=== PATIENT | male | born 1935 | race Caucasian/White ===

== ENCOUNTER 2017-12-13 05:47 | Emergency (ER) | payer MEDICARE, OTHER ==
[~2017-12-13] VITALS: Ht 172.7 cm; Wt 81.6 kg
[~2017-12-13 05:47] MED LIST: ESOM10SU; Losartan Potassium PO; MULTI VITAMINS
--- NOTE | 2017-12-13 05:51 | NUR ---
BIB RA C/C ABDOMINAL PAIN. SECONDARY TO NAUSEA. "IT FEELS LIKE A GAS PAIN." PT AA/OX4. SKIN'S PINK, WARM, DRY. DENIES CHEST PAIN. NO S/S SOB. PT HYPERTENSIVE 171/86, SINUS TACH 108. ALL OTHER VSS. AWAITING MD ORDERS, EVAL.
[2017-12-13] MEDS ORDERED: ONDANSETRON HCL/PF 4 MG/2 ML VIAL ONE ×3 (06:15→06:34)
[2017-12-13] MEDS ORDERED: MORPHINE SULFATE INJ 4 MG/ML DISP.SYRIN ONE ×2 (06:16→06:20)
[2017-12-13] MEDS: ONDANSETRON HCL/PF 4 MG/2 ML VIAL IVP ONE ×2 (06:24→06:30)
[2017-12-13] MEDS ORDERED: IV NS 0.9% 500 ML BAG IV ONE (06:30)
[2017-12-13] MEDS ORDERED: MORPHINE SULFATE INJ 2 MG/ML DISP.SYRIN IV ONE ×2 (06:30→07:00)
--- NOTE | 2017-12-13 06:32 | NUR ---
PATIENT INITIALLY REFUSED MORPHINE AND ZOFRAN. MD NOTIFIED AND DISCUSSED RISKS VS BENEFITS. PATIENT THEN DECIDED THAT HE WANTED THE MEDICATIONS.
[2017-12-13] MEDS ORDERED: MORPHINE SULFATE INJ 2 MG/ML DISP.SYRIN ONE (06:34)
[2017-12-13 06:43] LABS: INR 0.96 (0.87-1.13)
[2017-12-13 06:47] LABS: TROPONIN I < 0.017 ng/mL (0.00-0.056)
[2017-12-13 06:55] LABS: BASOPHILS % (AUTO) 0.3 % (0.0-2.0); EOSINOPHILS % (AUTO) 5.8 % (0.0-6.0); HEMATOCRIT 39 % (39-51); HEMOGLOBIN 13.1 g/dL (13.5-17.5); LYMPHOCYTES # (AUTO) 1.9 /CMM (0.8-4.8); LYMPHOCYTES % (AUTO) 46.8 % (20.0-44.0); MEAN CORPUSCULAR HEMOGLOBIN 35 PG (26.0-33.0); MEAN CORPUSCULAR HGB CONC 34 g/dl (31.0-36.0); MEAN CORPUSCULAR VOLUME 102 fL (80-96); MONOCYTES # (AUTO) 0.3 /CMM (0.1-1.30); MONOCYTES % (AUTO) 6.8 % (2.0-12.0); NEUTROPHILS # (AUTO) 1.6 /CMM (1.8-8.9); NEUTROPHILS % (AUTO) 40.3 % (43.0-81.0); PLATELET COUNT (AUTO) 115 /CMM (150-450); RDW COEFFICIENT OF VARIATION 12.8 (11.5-15.0); WHITE BLOOD COUNT (AUTO) 4.1 K/uL (4.3-11.0)
[2017-12-13 06:59] LABS: CALCIUM, SERUM 8.9 mg/dL (8.5-10.1); CARBON DIOXIDE 25 mmol/L (21-32); CHLORIDE 108 mmol/L (98-107); CREATININE 1.4 mg/dL (0.6-1.3); GLUCOSE 104 mg/dL (74-106); POTASSIUM 3.6 mmol/L (3.5-5.1); SODIUM SERUM 141 mmol/L (136-145); UREA NITROGEN, BLOOD 27 mg/dL (7-18)
[2017-12-13 07:04] LABS: ALANINE AMINOTRANSFERASE 28 U/L (12-78); ALBUMIN 3.7 g/dL (3.4-5.0); ALKALINE PHOSPHATASE 54 U/L (46-116); ASPARTATE AMINOTRANSFERASE 29 U/L (15-37); BILIRUBIN,DIRECT 0.2 mg/dL (0.0-0.2); BILIRUBIN,TOTAL 0.9 mg/dL (0.2-1.0); LIPASE 190 U/L (73-393); TOTAL PROTEIN, SERUM 7.5 g/dL (6.4-8.2)
--- NOTE | 2017-12-13 07:23 | NUR ---
REPORT GIVEN TO ONCOMING SHIFT GABRIELLA HERNANDEZ AND EMEKA. PT STABLE CONDITION. VSS. NAD.
--- NOTE | 2017-12-13 08:15 | NUR ---
IV removed. Catheter intact and site benign. Pressure and 4x4 applied to site. No bleeding noted.
--- NOTE | 2017-12-13 08:16 | NUR ---
Patient discharged to home in stable condition. Written and verbal after care instructions given. Patient verbalizes understanding of instruction.
[2017-12-13 08:17] VITALS: BP 121/52
== END 2017-12-13 08:22 | disposition home or self-care (01) ==
LOC: ER 05:50
DX: R10.84 Generalized abdominal pain (principal); R11.2 Nausea with vomiting, unspecified; I10 Essential (primary) hypertension; F17.200 Nicotine dependence, unspecified, uncomplicated; Z79.899 Other long term (current) drug therapy
CPT/HCPCS: 36415; 71045; 74176; 80048; 80076; 83690; 84484; 85025; 85730; 93005; 96361; 96374; 96375; 99285; A4606; J2270 ×2; J2405; J7040; Z7610

== ENCOUNTER 2018-05-30 01:42 | Inpatient (IN) | payer MEDICARE, OTHER ==
[~2018-05-30] VITALS: Ht 177.8 cm; Wt 74.8 kg
--- NOTE | 2018-05-30 02:10 | NUR ---
TO BED 4 AMBULATORY C/O R FOOT PAIN WITH REDNESS, PAIN AND SWELLING X10 DAYS. PT AAOX4 NO ACUTE DISTRESS NOTED, RESP EVEN AND UNLABORED. PENDING ER MD BALBUENA.
--- NOTE | 2018-05-30 02:51 | NUR ---
ER MD AT BEDSIDE TO EVAL PT WITH ORDERS RECEIVED. WILL CARRY OUT ORDERS.
--- NOTE | 2018-05-30 02:55 | NUR ---
STARTED SL 18G TO R HAND. BLOOD DRAWN AND SENT TO LAB.
[2018-05-30] MEDS ORDERED: CEFAZOLIN 2 GM in IV D5W 100 ML IV ONE (03:00)
[2018-05-30 03:14] LABS: BASOPHILS # (AUTO) 0.1 /CMM (0.0-0.2); BASOPHILS % (AUTO) 1.4 % (0.0-2.0); HEMATOCRIT 37 % (39-51); HEMOGLOBIN 12.7 g/dL (13.5-17.5); LYMPHOCYTES # (AUTO) 1.3 /CMM (0.8-4.8); LYMPHOCYTES % (AUTO) 24.1 % (20.0-44.0); MEAN CORPUSCULAR HGB CONC 34 g/dl (31.0-36.0); MEAN CORPUSCULAR VOLUME 99 fL (80-96); MONOCYTES # (AUTO) 0.5 /CMM (0.1-1.30); MONOCYTES % (AUTO) 9.2 % (2.0-12.0); NEUTROPHILS # (AUTO) 3.4 /CMM (1.8-8.9); NEUTROPHILS % (AUTO) 63.3 % (43.0-81.0); PLATELET COUNT (AUTO) 181 /CMM (150-450); RED BLOOD CELL COUNT(AUTO) 3.76 MIL/uL (4.5-6.0); WHITE BLOOD COUNT (AUTO) 5.3 K/uL (4.3-11.0)
[2018-05-30 03:24] LABS: CALCIUM, SERUM 9.2 mg/dL (8.5-10.1); CARBON DIOXIDE 26 mmol/L (21-32); CHLORIDE 106 mmol/L (98-107); CREATININE 1.2 mg/dL (0.6-1.3); GLUCOSE 114 mg/dL (74-106); POTASSIUM 4.8 mmol/L (3.5-5.1); SODIUM SERUM 141 mmol/L (136-145); UREA NITROGEN, BLOOD 23 mg/dL (7-18)
[2018-05-30 03:28] LABS: URIC ACID 5.6 mg/dL (2.6-7.2)
[2018-05-30 03:31] LABS: C-REACTIVE PROTEIN 6.9 mg/dL (0.0-0.9)
[2018-05-30] MEDS ORDERED: CEFTRIAXONE 1GM BAG (ER ONLY) 50 ML IV ONE (03:34)
[2018-05-30] MEDS ORDERED: CEFTRIAXONE 1 G in IV D5W 50 ML IV ONE (04:00)
[2018-05-30] MEDS ORDERED: COLCHICINE 0.6 MG TABLET PO ONE (04:00)
[2018-05-30] MEDS ORDERED: IBUPROFEN 400 MG TABLET PO ONE (04:00)
[2018-05-30] MEDS ORDERED: IBUPROFEN 400 MG TABLET ONE (04:07)
[2018-05-30] MEDS ORDERED: COLCHICINE 0.6 MG TABLET ONE (04:07)
--- NOTE | 2018-05-30 05:40 | NUR ---
ER SPOKE TO SANA WARD REGARDING PT ADMISSION. WILL CALL FOR REPORT.
--- NOTE | 2018-05-30 05:43 | NUR ---
REPORT CALLED TO M/S GABRIELLA MINER. WILL TRANSPORT PT TO ROOM 321-2.
[2018-05-30] MEDS ORDERED: VANCOMYCIN 1 GM VIAL ONE (05:55)
[2018-05-30] MEDS ORDERED: MAG HYDROX/AL HYDROX/SIMETH 30 ML UDC PO PRN (06:00)
[2018-05-30] MEDS ORDERED: ONDANSETRON HCL/PF 4 MG/2 ML VIAL IVP PRN (06:00)
[2018-05-30] MEDS ORDERED: MAGNESIUM HYDROXIDE 30 ML UDC PO PRN (06:00)
[2018-05-30] MEDS ORDERED: ACETAMINOPHEN 325 MG TABLET PO PRN (06:00)
[2018-05-30] MEDS ORDERED: HYDROCODONE/APAP 5/325MG 1 EACH TABLET PO PRN (06:00)
[2018-05-30] MEDS ORDERED: MORPHINE SULFATE INJ 4 MG/ML DISP.SYRIN IV PRN (06:00)
[2018-05-30] MEDS ORDERED: VANCOMYCIN 1 GM in IV D5W 250 ML IV ONE (06:00)
[2018-05-30] MEDS ORDERED: Z GUARD REMEDY 2 OZ OINT TP PRN (06:00)
[2018-05-30 07:30] VITALS: BP 131/66
--- NOTE | 2018-05-30 07:30 | NUR ---
m/s office administrator: admission admitted this 83 year old male pt from e.r. room with dx: right foot cellulitis. noted with right foot swelling and with redness. elevated ble with pillow. also noted right heel with lesion with brown spots and skin peeling off. will defer to md. wound consulted. also noted with cong sole foot with calluses, dry skin and 3rd and 4th right toe with scab. photos not taken due to camera not working at this time. cn aware. oriented to room and surroundings. vss. no acute distress noted. will monitor.
[2018-05-30 08:00] VITALS: BP 130/69
[2018-05-30] MEDS ORDERED: FEE PK DOSING 1 MIN EA MC ONE (08:35)
[2018-05-30] MEDS: PANTOPRAZOLE 40 MG TABLET.DR PO SCH (08:40)
[2018-05-30] MEDS: IV NS 0.9% 1,000 ML IV PRN (08:41)
[2018-05-30] MEDS: LOSARTAN POTASSIUM 50 MG TABLET PO SCH ×2 (08:55→16:49)
--- NOTE | 2018-05-30 08:55 | NUR ---
M/S INTERIOR DESIGN TEACHER: MD VISIT SEEN AND EXAMINED BY DR. FOSTER AT THIS TIME. PT FOR PODIATRY CONSULT. PT AWARE.
[2018-05-30] MEDS ORDERED: HYDROMORPHONE INJ 2 MG/ML DISP.SYRIN IV PRN (09:00)
--- NOTE | 2018-05-30 09:45 | NUR ---
m/s network programmer: podiatry consult seen and examined by dr. box at this time and will order gentamycin ointment to right heel and will order arterial doppler as stated. pt aware and verbalized understanding. will continue to monitor.
--- NOTE | 2018-05-30 12:00 | NUR ---
m/s brick dropper: notes tx done to right lateral heel lesion with brown spots as ordered. lunch served. hob elevated. instructed to call for assistance. will monitor.
[2018-05-30] MEDS: COLCHICINE 0.6 MG TABLET PO SCH (14:37)
--- NOTE | 2018-05-30 15:00 | NUR ---
m/s broadcaster: notes resting comfortable in bed. instructed to call for assistance. will monitor.
[2018-05-30 16:00] VITALS: BP 139/71
--- NOTE | 2018-05-30 17:35 | NUR ---
m/s director of patient financial services: notes visiting at this time.
[2018-05-30] MEDS: VANCOMYCIN 500 MG in IV D5W 100 ML IV SCH (17:36)
[2018-05-30] MEDS ORDERED: VANCOMYCIN 0.75 GM in IV D5W 250 ML IV SCH (18:00)
--- NOTE | 2018-05-30 18:38 | NUR ---
m/s supervisor aluminum fabrication: notes remains at bedside. needs attended. no c/o pain or any discomfort. right lower ext elevated with pillow. instructed to call for assistance. will monitor.
--- NOTE | 2018-05-30 19:00 | NUR ---
m/s application dba: notes bedside report given to cate (rn) for continuity of care.
--- NOTE | 2018-05-30 19:19 | NUR ---
MS RN OPENING NOTES: RECEIVED PT ON ROOM AIR AND IS TOLERATING WELL. FAMILY MEMBER AT BEDSIDE. PT EATING DINNER AT THIS TIME. PT HAS IV AND IS BEING INFUSED WITH IV NS AT 75ML/HR. RIGHT LOWER ANKLE ELEVATED AT THIS TIME. BED KEPT IN LOW, LOCKED POSITION, AND SIDE RAILS X 2UP. WILL CONTINUE TO MONITOR PT.
[2018-05-30 20:00] VITALS: BP 159/77
[2018-05-31] MEDS: IV NS 0.9% 1,000 ML IV PRN (00:52)
[2018-05-31] MEDS: CEFTRIAXONE 1 G in IV D5W 50 ML IV SCH (04:00)
[2018-05-31] MEDS: VANCOMYCIN 500 MG in IV D5W 100 ML IV SCH ×2 (05:11→18:58)
--- NOTE | 2018-05-31 06:44 | NUR ---
MS RN CLOSING NOTES: ALL NEEDS WERE ATTENDED AND ANTICIPATED FOR. PT REFUSES TO CHANGE IN GOWN. PT ON ROOM AIR AND TOLERATING WELL. PT RESTING IN BED COMFORTABLY. PT HAS IV ON R HAND AND IS BEING INFUSED WITH IV NS AT 75ML/HR. RIGHT FOOT ELEVATED WITH PILLOWS. WOUND TX PERFORMED ORDERED. BED KEPT IN LOW, LOCKED POSITION, AND SIDE RAILS X 2UP. WILL ENDORSE TO AM NURSE FOR RUPERTO.
[2018-05-31 07:35] LABS: BASOPHILS % (AUTO) 0.5 % (0.0-2.0); EOSINOPHILS % (AUTO) 4.8 % (0.0-6.0); HEMATOCRIT 34 % (39-51); HEMOGLOBIN 11.5 g/dL (13.5-17.5); LYMPHOCYTES # (AUTO) 1.3 /CMM (0.8-4.8); LYMPHOCYTES % (AUTO) 41.9 % (20.0-44.0); MEAN CORPUSCULAR HGB CONC 34 g/dl (31.0-36.0); MEAN CORPUSCULAR VOLUME 99 fL (80-96); MONOCYTES # (AUTO) 0.3 /CMM (0.1-1.30); MONOCYTES % (AUTO) 10.5 % (2.0-12.0); NEUTROPHILS # (AUTO) 1.3 /CMM (1.8-8.9); NEUTROPHILS % (AUTO) 42.3 % (43.0-81.0); PLATELET COUNT (AUTO) 163 /CMM (150-450); RED BLOOD CELL COUNT(AUTO) 3.38 MIL/uL (4.5-6.0)
[2018-05-31 07:45] LABS: CALCIUM, SERUM 8.4 mg/dL (8.5-10.1); CARBON DIOXIDE 26 mmol/L (21-32); CHLORIDE 111 mmol/L (98-107); CREATININE 1.2 mg/dL (0.6-1.3); GLUCOSE 113 mg/dL (74-106); PHOSPHORUS 3.6 mg/dL (2.5-4.9); POTASSIUM 4.1 mmol/L (3.5-5.1); SODIUM SERUM 143 mmol/L (136-145); UREA NITROGEN, BLOOD 16 mg/dL (7-18)
--- NOTE | 2018-05-31 07:53 | NUR ---
MS RN OPENING NOTE RECEIVED PATIENT IN BED. ALERT ORIENTED X4. ON ROOM AIR, TOLERATING WELL. IN NO APPARENT DISTRESS OR DISCOMFORT AT THIS TIME. RESPIRATIONS EVEN AND UNLABORED, DENIES PAIN AND SOB. PATIENT IS ABLE TO COMMUNICATE NEEDS. RIGHT HAND 18G IVC WITH FLUIDS RUNNING AT 75ML/HR, PATENT AND INTACT. KEPT CLEAN AND COMFORTABLE. ALL NEEDS ATTENDED, SAFETY MEASURES IN PLACE, BED IN LOW LOCKED POSITION, SIDE RAILS UP X2, CALL LIGHT WITHIN EASY REACH. WILL CONTINUE TO MONITOR.
[2018-05-31 08:00] VITALS: BP 137/73
[2018-05-31 08:00] LABS: CHOLESTEROL 154 mg/dL (<200); HDL CHOLESTEROL 58 mg/dL (40-60); LDL 95 mg/dL (0-99); THYROID STIMULATING HORMONE 1.228 uIU/mL (0.358-3.74); TRIGLYCERIDES 64 mg/dL (30-150)
[2018-05-31] MEDS: PANTOPRAZOLE 40 MG TABLET.DR PO SCH (08:31)
[2018-05-31] MEDS: LOSARTAN POTASSIUM 50 MG TABLET PO SCH ×2 (08:31→18:00)
[2018-05-31] MEDS: COLCHICINE 0.6 MG TABLET PO SCH (08:31)
[2018-05-31] MEDS: CLOTRIMAZOLE 1% 15 GM TUBE TP SCH (08:32)
[2018-05-31] MEDS: GENTAMICIN 0.1% OINT 15 GM TUBE TP SCH (08:32)
[2018-05-31 16:00] VITALS: BP 145/96
[2018-05-31] MEDS ORDERED: BETA1TAB18 PO (16:07)
[2018-05-31] MEDS: MULTIVITAMIN/LUTEIN/MINERALS 1 TAB PO SCH (18:01)
--- NOTE | 2018-05-31 18:53 | NUR ---
MS RN CLOSING NOTE PATIENT IN BED. ALERT ORIENTED X4. ON ROOM AIR, TOLERATING WELL. IN NO APPARENT DISTRESS OR DISCOMFORT AT THIS TIME. RESPIRATIONS EVEN AND UNLABORED, DENIES PAIN AND SOB. PATIENT IS ABLE TO COMMUNICATE NEEDS. RIGHT HAND 18G IVC WITH FLUIDS RUNNING AT 75ML/HR, PATENT AND INTACT. KEPT CLEAN AND COMFORTABLE. ALL NEEDS ATTENDED, SAFETY MEASURES IN PLACE, BED IN LOW LOCKED POSITION, SIDE RAILS UP X2, CALL LIGHT WITHIN EASY REACH. WILL ENDORSE TO PM NURSE FOR RUPERTO.
[2018-05-31 20:00] VITALS: BP 137/60
[2018-05-31 20:26] VITALS: BP 137/60
[2018-06-01] MEDS: CEFTRIAXONE 1 G in IV D5W 50 ML IV SCH (05:07)
[2018-06-01] MEDS: VANCOMYCIN 500 MG in IV D5W 100 ML IV SCH ×2 (06:15→17:18)
[2018-06-01 07:23] LABS: CALCIUM, SERUM 8.4 mg/dL (8.5-10.1); CARBON DIOXIDE 25 mmol/L (21-32); CHLORIDE 110 mmol/L (98-107); GLUCOSE 93 mg/dL (74-106); POTASSIUM 3.9 mmol/L (3.5-5.1); SODIUM SERUM 143 mmol/L (136-145); UREA NITROGEN, BLOOD 14 mg/dL (7-18)
--- NOTE | 2018-06-01 07:49 | NUR ---
MS RN OPENING NOTE RECEIVED PATIENT IN BED. ALERT ORIENTED X4. ON ROOM AIR, TOLERATING WELL. IN NO APPARENT DISTRESS OR DISCOMFORT AT THIS TIME. RESPIRATIONS EVEN AND UNLABORED, DENIES PAIN AND SOB. PATIENT IS ABLE TO COMMUNICATE NEEDS. LEFT FA 18G IVC WITH FLUIDS RUNNING AT 75ML/HR, PATENT AND INTACT. KEPT CLEAN AND COMFORTABLE. ALL NEEDS ATTENDED, SAFETY MEASURES IN PLACE, BED IN LOW LOCKED POSITION, SIDE RAILS UP X2, CALL LIGHT WITHIN EASY REACH. WILL CONTINUE TO MONITOR.
[2018-06-01 08:00] VITALS: BP 162/91
[2018-06-01] MEDS: PANTOPRAZOLE 40 MG TABLET.DR PO SCH (08:57)
[2018-06-01] MEDS: LOSARTAN POTASSIUM 50 MG TABLET PO SCH ×2 (08:58→16:33)
[2018-06-01] MEDS: MULTIVITAMIN/LUTEIN/MINERALS 1 TAB PO SCH (08:59)
[2018-06-01] MEDS: COLCHICINE 0.6 MG TABLET PO SCH (08:59)
[2018-06-01] MEDS: GENTAMICIN 0.1% OINT 15 GM TUBE TP SCH (09:04)
[2018-06-01] MEDS: CLOTRIMAZOLE 1% 15 GM TUBE TP SCH (09:08)
--- NOTE | 2018-06-01 09:11 | NUR ---
PER DR FOSTER VERBAL ORDER HOLD CURRENT COLCHICINE DOSE. NOTED AND CARRIED OUT.
[2018-06-01 16:00] VITALS: BP 156/90
[2018-06-01] MEDS: IV NS 0.9% 1,000 ML IV PRN (17:18)
--- NOTE | 2018-06-01 19:40 | NUR ---
MS RN NOTES RECEIVED PATIENT IN BED. ALERT ORIENTED X4. ON ROOM AIR, TOLERATING WELL. IN NO APPARENT DISTRESS OR DISCOMFORT AT THIS TIME. RESPIRATIONS EVEN AND UNLABORED, DENIES PAIN AND SOB. PATIENT IS ABLE TO COMMUNICATE NEEDS, WITH IV LINE ON HIS LEFT FOREARM G#20 NS INFUSING AT 75ML/HR, PATENT AND INTACT. KEPT CLEAN AND COMFORTABLE. ALL SAFETY MEASURES IN PLACE, BED IN LOW LOCKED POSITION, SIDE RAILS UP X2, CALL LIGHT WITHIN EASY REACH. WILL CONTINUE TO MONITOR ACCORDINGLY.
[2018-06-01 20:02] VITALS: BP 153/77
[2018-06-02] MEDS: CEFTRIAXONE 1 G in IV D5W 50 ML IV SCH (05:39)
[2018-06-02] MEDS: VANCOMYCIN 500 MG in IV D5W 100 ML IV SCH (06:12)
--- NOTE | 2018-06-02 06:54 | NUR ---
MS RN NOTES: ALL NEEDS WERE ATTENDED AND ANTICIPATED FOR. . PATIENT ON ROOM AIR AND SATING WELL. PATIENT RESTING IN BED COMFORTABLY. ABLE TO SLEEP THE ENTIRE NIGHT. PATIENT HAS IV ON LEFT FOREARM AND IS BEING INFUSED WITH IV NS AT 75ML/HR. RIGHT FOOT ELEVATED WITH PILLOWS. WOUND TX DONE ORDERED. BED KEPT IN LOW, LOCKED POSITION, AND SIDE RAILS X 2UP. WILL ENDORSE TO AM NURSE FOR CONTINUITY OF CARE.
--- NOTE | 2018-06-02 07:20 | NUR ---
RN OPENING NOTES RECEIVED PATIENT IN BED AWAKE. A/OX3, ABLE TO MAKE NEEDS KNOWN. NOT IN ANY FORM OF DISTRESS, NO SOB. DENIED PAIN OR DISCOMFORT AT THIS TIME. IV ACCESS INTACT AND PATENT. KEPT PATIENT SAFE AND COMFORTABLE. BED IN LOW/LOCKED POSITION, SIDERAILS UPX2, CALL LIGHT IN REACH. WILL MONITOR ACCORDINGLY.
[2018-06-02 07:30] LABS: CALCIUM, SERUM 8.4 mg/dL (8.5-10.1); CARBON DIOXIDE 24 mmol/L (21-32); CHLORIDE 111 mmol/L (98-107); GLUCOSE 100 mg/dL (74-106); SODIUM SERUM 144 mmol/L (136-145); UREA NITROGEN, BLOOD 12 mg/dL (7-18)
[2018-06-02 08:00] VITALS: BP 146/70
[2018-06-02] MEDS: PANTOPRAZOLE 40 MG TABLET.DR PO SCH (08:10)
[2018-06-02 08:11] VITALS: BP 146/70
[2018-06-02] MEDS: COLCHICINE 0.6 MG TABLET PO SCH (08:11)
[2018-06-02] MEDS: LOSARTAN POTASSIUM 50 MG TABLET PO SCH (08:11)
[2018-06-02] MEDS: MULTIVITAMIN/LUTEIN/MINERALS 1 TAB PO SCH (08:12)
[2018-06-02] MEDS: GENTAMICIN 0.1% OINT 15 GM TUBE TP SCH (08:14)
[2018-06-02] MEDS: CLOTRIMAZOLE 1% 15 GM TUBE TP SCH (08:14)
--- NOTE | 2018-06-02 13:00 | NUR ---
DISCHARGED PATIENT IN STABLE CONDITION, PICKED UP BY A FAMILY MEMBER. DISCHARGE INSTRUCTIONS GIVEN, VERBALIZED UNDERSTANDING. DC PAPERWORK AND PRESCRIPTTION GIVEN. ALL BELONGINGS RETURNED, FORM SIGNED. REMMOVED IV ACCESS, NO BLEEDING, NO COMPLICATIONS.REMOVED NAME BAND. REFUSED PICTURES.
== END 2018-06-02 13:00 | disposition home or self-care (01) | DRG 603 ==
LOC: ER 02:00 → MED 05:45
PROVIDERS: ADMIT Internal Medicine; ATTEND Internal Medicine
DX: L03.115 Cellulitis of right lower limb (principal); I10 Essential (primary) hypertension; M10.9 Gout, unspecified; E78.5 Hyperlipidemia, unspecified; D63.8 Anemia in other chronic diseases classified elsewhere; Z90.49 Acquired absence of other specified parts of digestive tract; I70.202 Unspecified atherosclerosis of native arteries of extremities, left leg; F41.9 Anxiety disorder, unspecified
CPT/HCPCS: 36415; 73610-TC; 80048-TC; 80061-TC; 80202-TC; 83735-TC; 84100-TC; 84443-TC; 84550-TC; 85025-TC; 85652-TC; 86140-TC; 87081-TC; 93971-TC; A6402; G0378; J0690; J0696; J3370; J7030; J7060

== ENCOUNTER 2018-07-08 04:06 | Emergency (ER) | payer MEDICARE ==
[~2018-07-08] VITALS: Ht 170.2 cm; Wt 77.1 kg
[~2018-07-08 04:06] MED LIST changes: +BETA1TAB18 PO; -ESOM10SU; -MULTI VITAMINS
--- NOTE | 2018-07-08 04:10 | NUR ---
PT CAROLYN COMPLAINING OF DIZZINESS, PT STATES HE TOOK KOZAAR FOR HTN AND THEN DRANK WHISKEY. PT AXO4. RESPIRATIONS EVEN AND UNLABORED. PT AMBULATORY WITH STEADY GAIT. PT PUT ON THE MONITOR AND PULSE OX.
--- NOTE | 2018-07-08 04:25 | NUR ---
PT REFUSING BLOOD WORK AND LINE FOR MEDICATION.
[2018-07-08] MEDS ORDERED: CLONIDINE HCL 0.1 MG TABLET ONE (04:29)
--- NOTE | 2018-07-08 04:30 | NUR ---
PT CONSENT TO TAKE PO MEDICATION FOR BP.
[2018-07-08] MEDS: CLONIDINE HCL 0.1 MG TABLET PO ONE (04:32)
--- NOTE | 2018-07-08 04:53 | NUR ---
Odin sarabia in [facility] - 07/08/18 at 0454 by FAUSTO PT REFUSING BLOOD WORK AND LINE FOR MEDICATION.
[2018-07-08] MEDS: ONDANSETRON HCL/PF 4 MG/2 ML VIAL IVP ONE (04:54)
[2018-07-08] MEDS: IV NS 0.9% 500 ML BAG IV ONE (04:54)
--- NOTE | 2018-07-08 05:13 | NUR ---
Patient discharged to home in stable condition. Written and verbal after care instructions given. Patient verbalizes understanding of instruction. Pt ambulatory with steady gait. AXO4.
[2018-07-08 05:14] VITALS: BP 134/71
== END 2018-07-08 05:15 | disposition home or self-care (01) ==
LOC: ER 04:07
DX: R42 Dizziness and giddiness (principal); I10 Essential (primary) hypertension; F41.9 Anxiety disorder, unspecified; M10.9 Gout, unspecified; F17.200 Nicotine dependence, unspecified, uncomplicated; Z79.899 Other long term (current) drug therapy
CPT/HCPCS: 93005; 99283; A4606

== ENCOUNTER 2018-08-26 03:51 | Emergency (ER) | payer MEDICARE ==
[~2018-08-26] VITALS: Ht 170.2 cm; Wt 78.9 kg
--- NOTE | 2018-08-26 03:55 | NUR ---
PT BIBRA COMPLAINING OF PALPITATIONS, PER EMS, PT WAS AT [facility] AND TOOK LOSARTAN, AND PILL GOT STUCK IN THROAT. PT ANXIOUS UPON ARRIVAL, AND SHAKING. PT PUT ON THE REGIONAL CRA AND PULSE OX. PT HYPERTENSIVE ON THE MONITOR. ER MD AT BEDSIDE.
[2018-08-26] MEDS ORDERED: DEXAMETHASONE SOD PHOSPHATE 10 MG/ML VIAL IV ONE (04:00)
[2018-08-26] MEDS ORDERED: FAMOTIDINE/PF INJ 20 MG/2 ML VIAL IV ONE ×2 (04:00→04:07)
[2018-08-26] MEDS ORDERED: LORAZEPAM INJ 2 MG/ML VIAL IV ONE (04:00)
[2018-08-26] MEDS ORDERED: IV NS 0.9% 1,000 ML BAG IV ONE (04:00)
[2018-08-26] MEDS ORDERED: diphenhydrAMINE HCL 50 MG/ML VIAL IV ONE (04:00)
[2018-08-26] MEDS ORDERED: diphenhydrAMINE HCL 50 MG/ML VIAL ONE (04:07)
[2018-08-26] MEDS ORDERED: DEXAMETHASONE SOD PHOSPHATE 10 MG/ML VIAL ONE (04:07)
[2018-08-26] MEDS ORDERED: LORAZEPAM INJ 2 MG/ML VIAL ONE (04:08)
--- NOTE | 2018-08-26 04:10 | NUR ---
Note undone in EDM - 08/26/18 at 0427 by MARIAN PT BIB RA WITH A C/O ABD PAIN SINCE 193 S/P EATING DIM SUM RICE. PT STATED THAT HE HAD DIARRHEA AND VOMITTED X2 GYMNASIUM TEACHER. 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 PT AMBULATED TO THE BATHROOM WITH A STEADY GAIT. PT TRIED TO GIVE A URINE SAMPLE. PT THEN AMBULATED TO ER 7 WITH A STEADY GAIT. EKG WAS ORDERED AND PT REFUSED EKG AND REFUSED TO BE CONNECTED TO THE MONITOR.
[2018-08-26 04:21] LABS: BASOPHILS % (AUTO) 0.9 % (0.0-2.0); EOSINOPHILS % (AUTO) 3.4 % (0.0-6.0); HEMATOCRIT 41 % (39-51); HEMOGLOBIN 14.2 g/dL (13.5-17.5); LYMPHOCYTES # (AUTO) 2.4 /CMM (0.8-4.8); LYMPHOCYTES % (AUTO) 58.3 % (20.0-44.0); MEAN CORPUSCULAR HGB CONC 35 g/dl (31.0-36.0); MEAN CORPUSCULAR VOLUME 98 fL (80-96); MONOCYTES # (AUTO) 0.3 /CMM (0.1-1.30); MONOCYTES % (AUTO) 7.5 % (2.0-12.0); NEUTROPHILS # (AUTO) 1.2 /CMM (1.8-8.9); NEUTROPHILS % (AUTO) 29.9 % (43.0-81.0); PLATELET COUNT (AUTO) 129 /CMM (150-450); RED BLOOD CELL COUNT(AUTO) 4.17 MIL/uL (4.5-6.0); WHITE BLOOD COUNT (AUTO) 4.1 K/uL (4.3-11.0)
[2018-08-26 04:29] LABS: CALCIUM, SERUM 8.8 mg/dL (8.5-10.1); CARBON DIOXIDE 27 mmol/L (21-32); CHLORIDE 103 mmol/L (98-107); CREATININE 1.3 mg/dL (0.6-1.3); GLUCOSE 98 mg/dL (74-106); POTASSIUM 3.8 mmol/L (3.5-5.1); SODIUM SERUM 140 mmol/L (136-145); UREA NITROGEN, BLOOD 22 mg/dL (7-18)
--- NOTE | 2018-08-26 04:30 | NUR ---
XRAY AT BEDSIDE.
--- NOTE | 2018-08-26 04:43 | NUR ---
PT TAKEN TO CT.
--- NOTE | 2018-08-26 04:55 | NUR ---
PT RETURNED FROM CT.
--- NOTE | 2018-08-26 05:06 | NUR ---
PT RESTING IN BED COMFORTABLY, NAD NOTED. WILL CONTINUE TO MONITOR.
[2018-08-26] MEDS ORDERED: ACETAMINOPHEN 325 MG TABLET PO ONE (06:00)
[2018-08-26] MEDS ORDERED: ACETAMINOPHEN 325 MG TABLET ONE (06:17)
--- NOTE | 2018-08-26 07:13 | NUR ---
received report from Shefali QUIROZ for lizzie. Patient in bed, sitting upright in no apparent distress noted. Will continue to monitor accordingly.
--- NOTE | 2018-08-26 07:25 | NUR ---
called PT son and spoke to Hunter and per son his mom is on her way.
[2018-08-26 08:44] VITALS: BP 135/71
--- NOTE | 2018-08-26 08:45 | NUR ---
Patient discharged to home in stable condition. Written and verbal after care instructions given. Patient verbalizes understanding of instruction.IV removed. Catheter intact and site benign. Pressure and 4x4 applied to site. No bleeding noted.
== END 2018-08-26 08:45 | disposition home or self-care (01) ==
LOC: ER 03:53
DX: F41.0 Panic disorder [episodic paroxysmal anxiety] (principal); I10 Essential (primary) hypertension; F17.200 Nicotine dependence, unspecified, uncomplicated; M19.90 Unspecified osteoarthritis, unspecified site; Z79.899 Other long term (current) drug therapy
CPT/HCPCS: 36415; 70490; 71045; 80048; 83605; 84484; 85025; 85730; 86850; 93005; 96374; 96375; 99284; J1100; J1200; J2060; J3490; J7030

== ENCOUNTER 2020-11-13 03:35 | Emergency (ER) | payer MEDICARE ==
[~2020-11-13] VITALS: Ht 170.2 cm; Wt 78.9 kg
--- NOTE | 2020-11-13 03:45 | NUR ---
URINE COLLECTED AND SENT TO LAB
--- NOTE | 2020-11-13 03:45 | NUR ---
SULAIMAN [id number] FROM HOME STOMACH PAIN X 2DAYS, TAKEN GAS PILLS BEFORE SLEEPING WOKE UP IN PAIN. LAST BM LAST NIGHT, DENIES URINARY SX. PATIENT A/O X 4, RR EVEN AND UNLABORED, NO SOB NOTED. PATIENT CONNECTED TO MONITOR AND POX. WILL CONTINUE TO MONITOR.
[2020-11-13] MEDS ORDERED: ONDANSETRON HCL/PF 4 MG/2 ML VIAL ONE (03:51)
[2020-11-13] MEDS ORDERED: MORPHINE SULFATE INJ 4 MG/ML DISP.SYRIN ONE (03:52)
[2020-11-13] MEDS ORDERED: MORPHINE SULFATE INJ 2 MG/ML DISP.SYRIN IV ONE (04:00)
[2020-11-13] MEDS ORDERED: ONDANSETRON HCL/PF 4 MG/2 ML VIAL IVP ONE (04:00)
[2020-11-13] MEDS ORDERED: IV NS 0.9% 1,000 ML BAG IV ONE (04:00)
[2020-11-13 04:05] LABS: BASOPHILS % (AUTO) 0.8 % (0.0-2.0); EOSINOPHILS % (AUTO) 3.7 % (0.0-6.0); HEMATOCRIT 38 % (39-51); HEMOGLOBIN 12.8 g/dL (13.5-17.5); LYMPHOCYTES # (AUTO) 1.9 K/uL (0.8-4.8); LYMPHOCYTES % (AUTO) 31.9 % (20.0-44.0); MEAN CORPUSCULAR HGB CONC 34 g/dl (31.0-36.0); MEAN CORPUSCULAR VOLUME 96 fL (80-96); MONOCYTES # (AUTO) 0.4 K/uL (0.1-1.30); MONOCYTES % (AUTO) 6.3 % (2.0-12.0); NEUTROPHILS # (AUTO) 3.3 K/uL (1.8-8.9); NEUTROPHILS % (AUTO) 57.3 % (43.0-81.0); PLATELET COUNT (AUTO) 141 K/uL (150-450); RED BLOOD CELL COUNT(AUTO) 3.97 MIL/uL (4.5-6.0); WHITE BLOOD COUNT (AUTO) 5.8 K/uL (4.3-11.0)
[2020-11-13 04:09] LABS: BILIRUBIN,URINE NEGATIVE (NEGATIVE); COLOR,URINE YELLOW (YELLOW); LEUKOCYTE ESTERASE ,URINE NEGATIVE (NEGATIVE); NITRITE, URINE NEGATIVE (NEGATIVE); PROTEIN,URINE NEGATIVE (NEGATIVE); UGLUCOSE NEGATIVE (NEGATIVE); UROBILINOGEN,URINE 0.2 EU/dL (0.2)
[2020-11-13 04:15] LABS: BACTERIA,URINE None seen /HPF (None Seen); RBC,URINE 0-2 /HPF (0-2); SQUAMOUS EPITHELIAL CELL,UR Few /HPF (None Seen); WBC,URINE 0-2 /HPF (0-3)
--- NOTE | 2020-11-13 04:22 | NUR ---
xray at bedside
--- NOTE | 2020-11-13 04:26 | NUR ---
PATIENT TAKEN TO CT
[2020-11-13 04:40] LABS: ALANINE AMINOTRANSFERASE 23 U/L (12-78); ALBUMIN 3.8 g/dL (3.4-5.0); ALKALINE PHOSPHATASE 71 U/L (46-116); ASPARTATE AMINOTRANSFERASE 21 U/L (15-37); BILIRUBIN,DIRECT 0.3 mg/dL (0.0-0.2); BILIRUBIN,TOTAL 1.4 mg/dL (0.2-1.0); CALCIUM, SERUM 9.2 mg/dL (8.5-10.1); CARBON DIOXIDE 30 mmol/L (21-32); CHLORIDE 107 mmol/L (98-107); CREATININE 1.4 mg/dL (0.6-1.3); GLUCOSE 121 mg/dL (74-106); LIPASE 150 U/L (73-393); SODIUM SERUM 142 mmol/L (136-145); TOTAL PROTEIN, SERUM 7.7 g/dL (6.4-8.2); UREA NITROGEN, BLOOD 22 mg/dL (7-18)
--- NOTE | 2020-11-13 05:40 | NUR ---
Patient discharged to home in stable condition. Written and verbal after care instructions given. Patient verbalizes understanding of instruction. IV removed. Catheter intact and site benign. Pressure and 4x4 applied to site. No bleeding noted. Pt ambulatory with a steady gait
[2020-11-13 05:48] VITALS: BP 122/70
== END 2020-11-13 05:40 | disposition home or self-care (01) ==
LOC: ER 03:37
DX: K44.9 Diaphragmatic hernia without obstruction or gangrene (principal); N20.0 Calculus of kidney; K57.30 Diverticulosis of large intestine without perforation or abscess without bleeding; D35.01 Benign neoplasm of right adrenal gland; R11.2 Nausea with vomiting, unspecified; I10 Essential (primary) hypertension; E11.9 Type 2 diabetes mellitus without complications; M19.90 Unspecified osteoarthritis, unspecified site; F17.200 Nicotine dependence, unspecified, uncomplicated; Z79.899 Other long term (current) drug therapy
CPT/HCPCS: 36415; 71045; 74176; 80048; 80076; 81001; 83690; 84484; 85025; 93005; 96361; 96374; 96375; 99285; J2270; J2405; J7030

== ENCOUNTER 2021-02-25 18:15 | Emergency (ER) | payer MEDICARE ==
[~2021-02-25] VITALS: Ht 170.2 cm; Wt 74.8 kg
[2021-02-25 19:02] VITALS: BP 149/69
== END 2021-02-25 21:30 | disposition home or self-care (01) ==
LOC: ER 18:19
DX: R21 Rash and other nonspecific skin eruption (principal); I10 Essential (primary) hypertension; E11.9 Type 2 diabetes mellitus without complications; M19.90 Unspecified osteoarthritis, unspecified site; F17.200 Nicotine dependence, unspecified, uncomplicated; Z79.899 Other long term (current) drug therapy

== ENCOUNTER 2021-05-05 17:58 | Emergency (ER) | payer MEDICARE ==
[~2021-05-05] VITALS: Ht 165.1 cm; Wt 74.8 kg
--- NOTE | 2021-05-05 18:14 | NUR ---
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 PT BLOOD PRESSURE AND HEART RATE IS ELEVATED, DR BURGOS IS AWARE. BREATHING IS EVEN AND UNLABORED. PT ATTACHED TO MONITOR. DR BARROW AT BEDSIDE.
--- NOTE | 2021-05-05 18:30 | NUR ---
IV LINE ESTABLISHED BLOOD DRAWN AND SENT TO LAB.
--- NOTE | 2021-05-05 18:36 | NUR ---
ULTRASOUND AT BEDSIDE
--- NOTE | 2021-05-05 18:50 | NUR ---
PT TAKEN TO CT VIA ALEXANDRA
--- NOTE | 2021-05-05 19:25 | NUR ---
URINE COLLECTED AND SENT FOR LAB
[2021-05-05 19:39] LABS: BASOPHILS % (AUTO) 0.3 % (0.0-2.0); EOSINOPHILS % (AUTO) 4.8 % (0.0-6.0); HEMATOCRIT 38 % (39-51); HEMOGLOBIN 12.9 g/dL (13.5-17.5); LYMPHOCYTES # (AUTO) 1.4 K/uL (0.8-4.8); LYMPHOCYTES % (AUTO) 42.8 % (20.0-44.0); MEAN CORPUSCULAR HGB CONC 34 g/dl (31.0-36.0); MEAN CORPUSCULAR VOLUME 100 fL (80-96); MONOCYTES # (AUTO) 0.4 K/uL (0.1-1.30); MONOCYTES % (AUTO) 10.8 % (2.0-12.0); NEUTROPHILS # (AUTO) 1.4 K/uL (1.8-8.9); NEUTROPHILS % (AUTO) 41.3 % (43.0-81.0); PLATELET COUNT (AUTO) 138 K/uL (150-450); RED BLOOD CELL COUNT(AUTO) 3.79 MIL/uL (4.5-6.0); WHITE BLOOD COUNT (AUTO) 3.4 K/uL (4.3-11.0)
[2021-05-05 19:49] LABS: BILIRUBIN,URINE NEGATIVE (NEGATIVE); COLOR,URINE YELLOW (YELLOW); LEUKOCYTE ESTERASE ,URINE NEGATIVE (NEGATIVE); NITRITE, URINE NEGATIVE (NEGATIVE); PROTEIN,URINE NEGATIVE (NEGATIVE); UGLUCOSE NEGATIVE (NEGATIVE); UROBILINOGEN,URINE 0.2 EU/dL (0.2)
[2021-05-05 20:23] LABS: BACTERIA,URINE None seen /HPF (None Seen); MUCUS,URINE Few /LPF (None Seen); RBC,URINE 0-2 /HPF (0-2); SQUAMOUS EPITHELIAL CELL,UR 0-2 /HPF (None Seen); WBC,URINE 0-2 /HPF (0-3)
[2021-05-05 20:35] LABS: CALCIUM, SERUM 9.1 mg/dL (8.5-10.1); CARBON DIOXIDE 25 mmol/L (21-32); CHLORIDE 103 mmol/L (98-107); CREATININE 1.3 mg/dL (0.6-1.3); GLUCOSE 102 mg/dL (74-106); POTASSIUM 4.2 mmol/L (3.5-5.1); SODIUM SERUM 140 mmol/L (136-145); UREA NITROGEN, BLOOD 18 mg/dL (7-18)
[2021-05-05 20:41] LABS: ALANINE AMINOTRANSFERASE 18 U/L (12-78); ALBUMIN 3.7 g/dL (3.4-5.0); ALKALINE PHOSPHATASE 67 U/L (46-116); ASPARTATE AMINOTRANSFERASE 20 U/L (15-37); BILIRUBIN,DIRECT 0.2 mg/dL (0.0-0.2); BILIRUBIN,TOTAL 0.6 mg/dL (0.2-1.0); LIPASE 161 U/L (73-393); TOTAL PROTEIN, SERUM 7.8 g/dL (6.4-8.2)
[2021-05-05] MEDS ORDERED: FAMO-131 PO (21:04)
[2021-05-05] MEDS ORDERED: ALPR0.25 PO (21:04)
--- NOTE | 2021-05-05 21:40 | NUR ---
Patient discharged to home in stable condition. Written and verbal after care instructions given. Patient verbalizes understanding of instruction. IV removed. Catheter intact and site benign. Pressure and 4x4 applied to site. No bleeding noted.
[2021-05-05 22:15] VITALS: BP 118/62
== END 2021-05-05 21:50 | disposition home or self-care (01) ==
LOC: ER 19:03
DX: R10.13 Epigastric pain (principal); R14.1 Gas pain; I10 Essential (primary) hypertension; E11.9 Type 2 diabetes mellitus without complications; M19.90 Unspecified osteoarthritis, unspecified site; F17.200 Nicotine dependence, unspecified, uncomplicated; Z79.899 Other long term (current) drug therapy
CPT/HCPCS: 36415; 76705-TC; 80048-TC; 80076-TC; 81001; 83690-TC; 84484-TC; 85025-TC; 85730-TC; 87086-TC

== ENCOUNTER → 2021-08-21 | Emergency (ER) | payer MEDICARE ==
[~2021-08-21] VITALS: Ht 160 cm; Wt 29.5 kg
[~2021-08-21] MED LIST changes: +ALPR0.25 PO; +AZIT500T2 PO; +BENZ-13 PO; +FAMO-131 PO; +PRED20TA PO
--- NOTE | 2021-08-21 11:22 | NUR ---
TO ER MARIA G 12. BIBS C/O COUGH AND CONGESTION X2 DAYS. DENIES CHILLS, NAUSEA, AND VOMITTING. PT ATTCHED TO MONITOR. VITALS SIGNS ARE STABLE. AWATING MD ORDERS.
--- NOTE | 2021-08-21 12:28 | NUR ---
CXR DONE AT BEDSIDE
[2021-08-21 12:58] VITALS: BP 140/74
--- NOTE | 2021-08-21 12:58 | NUR ---
pt d/c explained prescribed medications and pharmacy p/u. pt called to pick him up. no sob or laborbed breathing. vs wnl
--- NOTE | 2021-08-21 13:00 | NUR ---
Patient discharged to home in stable condition. Written and verbal after care instructions given. Patient verbalizes understanding of instruction.
== END | disposition home or self-care (01) ==
LOC: ER 11:18
DX: J20.9 Acute bronchitis, unspecified (principal); I10 Essential (primary) hypertension; E11.9 Type 2 diabetes mellitus without complications; M19.90 Unspecified osteoarthritis, unspecified site; F17.200 Nicotine dependence, unspecified, uncomplicated; Z79.899 Other long term (current) drug therapy
CPT/HCPCS: 71045-TC

== ENCOUNTER 2021-09-02 16:30 | Emergency (ER) | payer MEDICARE ==
[~2021-09-02] VITALS: Ht 165.1 cm; Wt 70.3 kg
[~2021-09-02 16:30] MED LIST changes: -AZIT500T2 PO; -PRED20TA PO
--- NOTE | 2021-09-02 17:00 | NUR ---
ER BED 6 BIBS C/O COUGH. WAS HERE LAST WK, Dx: BRONCHITIS. NO PAIN, CHEST PAIN, OR SOB
[2021-09-02] MEDS ORDERED: PRED20TA PO (17:19)
[2021-09-02] MEDS ORDERED: AZIT500T2 PO (17:19)
[2021-09-02 17:25] VITALS: BP 150/72
== END 2021-09-02 17:26 | disposition home or self-care (01) ==
LOC: ER 16:33
DX: J40 Bronchitis, not specified as acute or chronic (principal); I10 Essential (primary) hypertension; E11.9 Type 2 diabetes mellitus without complications; M19.90 Unspecified osteoarthritis, unspecified site; F17.200 Nicotine dependence, unspecified, uncomplicated; Z79.899 Other long term (current) drug therapy

== ENCOUNTER 2021-11-04 01:11 | Emergency (ER) | payer MEDICARE, OTHER ==
[~2021-11-04] VITALS: Ht 167.6 cm; Wt 72.6 kg
[~2021-11-04 01:11] MED LIST changes: +AZIT500T2 PO; +PRED20TA PO
--- NOTE | 2021-11-04 01:15 | NUR ---
BB FOR CONSTIPATION X 3 DAYS. PLACED COMFORTABLY IN BED. VITALS CHECKED.
[2021-11-04] MEDS ORDERED: MINERAL OIL 133 ML (PYXIS) 1 EA ENEMA RC ONE ×2 (01:51→02:00)
--- NOTE | 2021-11-04 02:30 | NUR ---
FLEET ENEMA GIVEN PER RECTUM
[2021-11-04] MEDS ORDERED: POLY17PO4 PO (03:36)
--- NOTE | 2021-11-04 03:43 | NUR ---
Patient discharged to home in stable condition. Written and verbal after care instructions given. Patient verbalizes understanding of instruction.
[2021-11-04 03:48] VITALS: BP 132/71
== END 2021-11-04 03:53 | disposition home or self-care (01) ==
LOC: ER 01:15
DX: K59.00 Constipation, unspecified (principal); I10 Essential (primary) hypertension; E11.9 Type 2 diabetes mellitus without complications; M19.90 Unspecified osteoarthritis, unspecified site; F17.200 Nicotine dependence, unspecified, uncomplicated; Z79.899 Other long term (current) drug therapy
CPT/HCPCS: 74018

== ENCOUNTER 2022-01-04 06:51 | Emergency (ER) | payer MEDICARE ==
[~2022-01-04] VITALS: Ht 167.6 cm; Wt 72.6 kg
[~2022-01-04 06:51] MED LIST changes: +POLY17PO4 PO
[2022-01-04 07:02] VITALS: BP 125/70
--- NOTE | 2022-01-04 07:08 | NUR ---
Patient left without being seen by ER Physician
== END 2022-01-04 07:10 | disposition home or self-care (01) ==
LOC: ER 06:55
DX: Z53.21 Procedure and treatment not carried out due to patient leaving prior to being seen by health care provider (principal); R10.9 Unspecified abdominal pain; I10 Essential (primary) hypertension; E11.9 Type 2 diabetes mellitus without complications; M19.90 Unspecified osteoarthritis, unspecified site

== ENCOUNTER 2022-12-07 17:02 | Emergency (ER) | payer MEDICARE, OTHER ==
[~2022-12-07] VITALS: Ht 162.6 cm; Wt 73.5 kg
[~2022-12-07 17:02] MED LIST changes: +AMOX-430 PO; +MAG355OR18 PO; +ONDA4TAB11 PO
--- NOTE | 2022-12-07 17:30 | NUR ---
FRM HOME HEAD LACERATION S/P TRIP AND FALL. DENIES LOC . NO CHANGES IN MENTATION OR BLURRY VISION REPORTED. PLACED IN BED, AAOX4, BREATHING UNLABORED.
--- NOTE | 2022-12-07 18:00 | NUR ---
P[ATIENT TAKEN TO CT VIA ALEXANDRA
--- NOTE | 2022-12-07 19:43 | NUR ---
PRINTER ETELVINA GARCIA GAVE CARE INSTRUCTION VERBALLY TO RELATIVES VERBALIZES UNDERSTANDING, PATIENT DISCHARGE IN A STABLE CONDITION.
[2022-12-07 19:46] VITALS: BP 125/73; TEMP 98.1; O2SAT 97
== END 2022-12-07 19:47 | disposition home or self-care (01) ==
LOC: ER 17:20
DX: S01.81XA Laceration without foreign body of other part of head, initial encounter (principal); I10 Essential (primary) hypertension; E11.9 Type 2 diabetes mellitus without complications; F17.200 Nicotine dependence, unspecified, uncomplicated; Z79.899 Other long term (current) drug therapy; W01.0XXA Fall on same level from slipping, tripping and stumbling without subsequent striking against object, initial encounter; Y93.89 Activity, other specified; Y92.89 Other specified places as the place of occurrence of the external cause; Y99.8 Other external cause status
CPT/HCPCS: 12001; 70450; 99284; A6403

== ENCOUNTER 2022-12-20 17:13 | Emergency (ER) | payer MEDICARE, OTHER ==
[~2022-12-20] VITALS: Ht 180.3 cm; Wt 75.3 kg
[2022-12-20] MEDS ORDERED: IV NS 0.9% 1,000 ML BAG IV ONE (18:00)
[2022-12-20 18:56] LABS: CALCIUM, SERUM 8.7 mg/dL (8.5-10.1); CARBON DIOXIDE 25 mmol/L (21-32); CHLORIDE 103 mmol/L (98-107); CREATININE 1.3 mg/dL (0.6-1.3); GLUCOSE 96 mg/dL (74-106); POTASSIUM 4.2 mmol/L (3.5-5.1); SODIUM SERUM 135 mmol/L (136-145); UREA NITROGEN, BLOOD 23 mg/dL (7-18)
[2022-12-20 18:57] LABS: BASOPHILS % (AUTO) 0.6 % (0.0-2.0); EOSINOPHILS # (AUTO) 0.1 K/uL (0.0-0.7); EOSINOPHILS % (AUTO) 1.7 % (0.0-6.0); HEMATOCRIT 36 % (39-51); HEMOGLOBIN 11.9 g/dL (13.5-17.5); LYMPHOCYTES # (AUTO) 1.2 K/uL (0.8-4.8); LYMPHOCYTES % (AUTO) 38.9 % (20.0-44.0); MEAN CORPUSCULAR HEMOGLOBIN 33 PG (26.0-33.0); MEAN CORPUSCULAR HGB CONC 33 g/dl (31.0-36.0); MEAN CORPUSCULAR VOLUME 98 fL (80-96); MONOCYTES # (AUTO) 0.3 K/uL (0.1-1.30); MONOCYTES % (AUTO) 10.4 % (2.0-12.0); NEUTROPHILS # (AUTO) 1.5 K/uL (1.8-8.9); NEUTROPHILS % (AUTO) 48.4 % (43.0-81.0); PLATELET COUNT (AUTO) 139 K/uL (150-450); RED BLOOD CELL COUNT(AUTO) 3.68 MIL/uL (4.5-6.0); RED CELL DISTRIBUTION WIDTH 12.7 % (11.5-15.0); WHITE BLOOD COUNT (AUTO) 3.1 K/uL (4.3-11.0)
[2022-12-20 19:07] LABS: ALANINE AMINOTRANSFERASE 20 U/L (12-78); ALBUMIN 3.4 g/dL (3.4-5.0); ALKALINE PHOSPHATASE 64 U/L (46-116); ASPARTATE AMINOTRANSFERASE 20 U/L (15-37); BILIRUBIN,DIRECT 0.3 mg/dL (0.0-0.2); BILIRUBIN,TOTAL 1.2 mg/dL (0.2-1.0); LIPASE 108 U/L (73-393); TOTAL PROTEIN, SERUM 6.9 g/dL (6.4-8.2)
[2022-12-20 19:42] LABS: APPEARANCE,URINE CLEAR (CLEAR); BILIRUBIN,URINE NEGATIVE (NEGATIVE); BLOOD, URINE NEGATIVE Ery/uL (NEGATIVE); COLOR,URINE YELLOW (YELLOW); KETONES,URINE NEGATIVE (NEGATIVE); LEUKOCYTE ESTERASE ,URINE NEGATIVE (NEGATIVE); NITRITE, URINE NEGATIVE (NEGATIVE); PROTEIN,URINE NEGATIVE (NEGATIVE); UGLUCOSE NEGATIVE (NEGATIVE); UROBILINOGEN,URINE 0.2 EU/dL (0.2)
[2022-12-20] MEDS ORDERED: LIDOCAINE VISCOUS 2% UD 15 ML UDC ONE (19:42)
[2022-12-20] MEDS ORDERED: MAG HYDROX/AL HYDROX/SIMETH 30 ML UDC ONE (19:42)
[2022-12-20] MEDS ORDERED: ONDANSETRON 4 MG TAB.RAPDIS ONE (19:43)
[2022-12-20] MEDS ORDERED: MAG HYDROX/AL HYDROX/SIMETH 30 ML UDC PO ONE (20:00)
[2022-12-20] MEDS ORDERED: ONDANSETRON 4 MG TAB.RAPDIS SL ONE (20:00)
[2022-12-20] MEDS ORDERED: LIDOCAINE VISCOUS 2% UD 15 ML UDC MM ONE (20:00)
[2022-12-20 20:31] VITALS: BP 150/70; TEMP 98.1; O2SAT 100
== END 2022-12-20 20:32 | disposition home or self-care (01) ==
LOC: ER 17:15
DX: R10.13 Epigastric pain (principal); I10 Essential (primary) hypertension; E11.9 Type 2 diabetes mellitus without complications; M19.90 Unspecified osteoarthritis, unspecified site; F17.200 Nicotine dependence, unspecified, uncomplicated; Z79.899 Other long term (current) drug therapy
CPT/HCPCS: 99285; 74176; 96360; 71045; 93005 ×2; 85025; 80048; 83690; 80076; 81003; 36415; 84484; J7030; Q0162

== ENCOUNTER 2023-01-06 16:28 | Inpatient (IN) | payer MEDICARE, OTHER ==
[~2023-01-06] VITALS: Ht 170.2 cm; Wt 74.8 kg
[2023-01-06] MEDS ORDERED: ONDANSETRON HCL/PF 4 MG/2 ML VIAL ONE (16:52)
[2023-01-06] MEDS ORDERED: FAMOTIDINE/PF INJ 20 MG/2 ML VIAL IV ONE ×2 (16:52→17:00)
[2023-01-06] MEDS ORDERED: IV NS 0.9% 500 ML BAG IV ONE (17:00)
[2023-01-06] MEDS ORDERED: ONDANSETRON HCL/PF 4 MG/2 ML VIAL IVP ONE (17:00)
[2023-01-06 17:05] LABS: BASOPHILS % (AUTO) 0.7 % (0.0-2.0); EOSINOPHILS # (AUTO) 0.1 K/uL (0.0-0.7); EOSINOPHILS % (AUTO) 1.3 % (0.0-6.0); HEMATOCRIT 39 % (39-51); HEMOGLOBIN 12.9 g/dL (13.5-17.5); LYMPHOCYTES # (AUTO) 1.7 K/uL (0.8-4.8); LYMPHOCYTES % (AUTO) 41.1 % (20.0-44.0); MEAN CORPUSCULAR HEMOGLOBIN 33 PG (26.0-33.0); MEAN CORPUSCULAR HGB CONC 33 g/dl (31.0-36.0); MEAN CORPUSCULAR VOLUME 99 fL (80-96); MONOCYTES # (AUTO) 0.3 K/uL (0.1-1.30); MONOCYTES % (AUTO) 7.4 % (2.0-12.0); NEUTROPHILS # (AUTO) 2.1 K/uL (1.8-8.9); NEUTROPHILS % (AUTO) 49.5 % (43.0-81.0); PLATELET COUNT (AUTO) 149 K/uL (150-450); RED BLOOD CELL COUNT(AUTO) 3.97 MIL/uL (4.5-6.0); RED CELL DISTRIBUTION WIDTH 13.6 % (11.5-15.0); WHITE BLOOD COUNT (AUTO) 4.2 K/uL (4.3-11.0)
[2023-01-06 17:28] LABS: POTASSIUM 4.1 mmol/L (3.5-5.1); SODIUM SERUM 140 mmol/L (136-145)
[2023-01-06 17:29] LABS: ALANINE AMINOTRANSFERASE 23 U/L (12-78); ALBUMIN 3.6 g/dL (3.4-5.0); ALKALINE PHOSPHATASE 58 U/L (46-116); ASPARTATE AMINOTRANSFERASE 22 U/L (15-37); BILIRUBIN,DIRECT 0.2 mg/dL (0.0-0.2); BILIRUBIN,TOTAL 1.1 mg/dL (0.2-1.0); CALCIUM, SERUM 9.4 mg/dL (8.5-10.1); CARBON DIOXIDE 24 mmol/L (21-32); CHLORIDE 105 mmol/L (98-107); CREATININE 1.2 mg/dL (0.6-1.3); GLUCOSE 100 mg/dL (74-106); LIPASE 131 U/L (73-393); TOTAL PROTEIN, SERUM 7.3 g/dL (6.4-8.2); UREA NITROGEN, BLOOD 27 mg/dL (7-18)
[2023-01-06 17:52] VITALS: O2SAT 97
[2023-01-06] MEDS ORDERED: LOSA100T31 PO (18:25)
[2023-01-06] MEDS ORDERED: PIPERACI/TAZO 3.375GM/D5W 50ML PB IV ONE (18:30)
[2023-01-06] MEDS ORDERED: VANCOMYCIN 1 GM /D5W 250 ML PB IV ONE (18:30)
[2023-01-06] MEDS ORDERED: VANCOMYCIN 1 GM in IV D5W 250 ML IV ONE (18:30)
[2023-01-06] MEDS ORDERED: PIPERACILLIN /TAZOBACTAM 3.375 G in IV D5W 50 ML IV ONE (18:30)
[2023-01-06] MEDS ORDERED: ZOLPIDEM TARTRATE 5 MG TABLET PO PRN (19:00)
[2023-01-06] MEDS ORDERED: MAG HYDROX/AL HYDROX/SIMETH 30 ML UDC PO PRN (19:00)
[2023-01-06] MEDS ORDERED: ONDANSETRON HCL/PF 4 MG/2 ML VIAL IVP PRN (19:00)
[2023-01-06] MEDS ORDERED: MAGNESIUM HYDROXIDE 30 ML UDC PO PRN (19:00)
[2023-01-06] MEDS ORDERED: LORAZEPAM INJ 2 MG/ML VIAL IV PRN (19:00)
[2023-01-06] MEDS ORDERED: Z GUARD REMEDY 4 OZ OINT TP PRN (19:00)
[2023-01-06] MEDS ORDERED: ACETAMINOPHEN 325 MG TABLET PO PRN (19:00)
[2023-01-06 20:00] VITALS: BP 159/78; TEMP 97.7; O2SAT 99
[2023-01-06 20:30] LABS: APPEARANCE,URINE CLEAR (CLEAR); BILIRUBIN,URINE NEGATIVE (NEGATIVE); BLOOD, URINE NEGATIVE Ery/uL (NEGATIVE); COLOR,URINE YELLOW (YELLOW); KETONES,URINE NEGATIVE (NEGATIVE); LEUKOCYTE ESTERASE ,URINE NEGATIVE (NEGATIVE); NITRITE, URINE NEGATIVE (NEGATIVE); PROTEIN,URINE NEGATIVE (NEGATIVE); UGLUCOSE NEGATIVE (NEGATIVE); UROBILINOGEN,URINE 0.2 EU/dL (0.2)
[2023-01-06] MEDS: IV NS 0.9% 1,000 ML IV PRN (21:50)
[2023-01-06] MEDS ORDERED: Thiamine 100 MG/ML VIAL ONE (23:29)
[2023-01-07] MEDS: Thiamine 100 MG in IV D5W 50 ML IV SCH ×2 (00:19→19:43)
[2023-01-07] MEDS ORDERED: PIPERACI/TAZO 3.375GM/D5W 50ML PB IV ONE ×2 (01:00→06:24)
[2023-01-07] MEDS: PIPERACILLIN /TAZOBACTAM 3.375 G in IV D5W 50 ML IV SCH ×4 (01:24→18:19)
[2023-01-07 07:02] LABS: BASOPHILS % (AUTO) 0.4 % (0.0-2.0); EOSINOPHILS # (AUTO) 0.1 K/uL (0.0-0.7); HEMATOCRIT 37 % (39-51); HEMOGLOBIN 12.3 g/dL (13.5-17.5); LYMPHOCYTES # (AUTO) 1.4 K/uL (0.8-4.8); LYMPHOCYTES % (AUTO) 39.9 % (20.0-44.0); MEAN CORPUSCULAR HEMOGLOBIN 33 PG (26.0-33.0); MEAN CORPUSCULAR HGB CONC 33 g/dl (31.0-36.0); MEAN CORPUSCULAR VOLUME 100 fL (80-96); MONOCYTES # (AUTO) 0.3 K/uL (0.1-1.30); MONOCYTES % (AUTO) 8.7 % (2.0-12.0); NEUTROPHILS # (AUTO) 1.7 K/uL (1.8-8.9); PLATELET COUNT (AUTO) 128 K/uL (150-450); RED BLOOD CELL COUNT(AUTO) 3.71 MIL/uL (4.5-6.0); RED CELL DISTRIBUTION WIDTH 13.6 % (11.5-15.0); WHITE BLOOD COUNT (AUTO) 3.4 K/uL (4.3-11.0)
[2023-01-07 07:24] LABS: ALANINE AMINOTRANSFERASE 16 U/L (12-78); ALKALINE PHOSPHATASE 54 U/L (46-116); ASPARTATE AMINOTRANSFERASE 16 U/L (15-37); BILIRUBIN,TOTAL 1.9 mg/dL (0.2-1.0); CALCIUM, SERUM 8.7 mg/dL (8.5-10.1); CARBON DIOXIDE 25 mmol/L (21-32); CHLORIDE 107 mmol/L (98-107); CREATININE 1.3 mg/dL (0.6-1.3); GLUCOSE 95 mg/dL (74-106); LIPASE 102 U/L (73-393); MAGNESIUM 2.2 mg/dL (1.8-2.4); PHOSPHORUS 3.7 mg/dL (2.5-4.9); POTASSIUM 3.9 mmol/L (3.5-5.1); SODIUM SERUM 141 mmol/L (136-145); TOTAL PROTEIN, SERUM 6.4 g/dL (6.4-8.2); UREA NITROGEN, BLOOD 22 mg/dL (7-18)
[2023-01-07 08:04] VITALS: BP 169/76; TEMP 97.9; O2SAT 99
[2023-01-07] MEDS ORDERED: PANTOPRAZOLE 40 MG VIAL IV SCH (09:00)
[2023-01-07] MEDS: MULTIVITAMIN/LUTEIN/MINERALS 1 TAB PO SCH (09:24)
[2023-01-07] MEDS: LOSARTAN POTASSIUM 50 MG TABLET PO SCH (09:28)
[2023-01-07 15:04] LABS: OCCULT BLOOD STOOL NEGATIVE (NEGATIVE)
[2023-01-07 15:55] VITALS: BP_SYST 110; BP_SYST 143; BP_DIAS 74; BP_DIAS 78; TEMP 97.5; TEMP 98.5; O2SAT 100; O2SAT 97
[2023-01-07] MEDS: IV NS 0.9% 1,000 ML IV PRN (16:03)
[2023-01-07 20:00] VITALS: BP 133/70; TEMP 98.2; O2SAT 98
[2023-01-08] MEDS: PIPERACILLIN /TAZOBACTAM 3.375 G in IV D5W 50 ML IV SCH ×2 (00:26→05:32)
[2023-01-08 06:53] LABS: BASOPHILS % (AUTO) 0.6 % (0.0-2.0); EOSINOPHILS # (AUTO) 0.1 K/uL (0.0-0.7); EOSINOPHILS % (AUTO) 2.6 % (0.0-6.0); HEMATOCRIT 37 % (39-51); HEMOGLOBIN 12.4 g/dL (13.5-17.5); LYMPHOCYTES # (AUTO) 1.3 K/uL (0.8-4.8); LYMPHOCYTES % (AUTO) 33.2 % (20.0-44.0); MEAN CORPUSCULAR HEMOGLOBIN 33 PG (26.0-33.0); MEAN CORPUSCULAR HGB CONC 33 g/dl (31.0-36.0); MEAN CORPUSCULAR VOLUME 100 fL (80-96); MONOCYTES # (AUTO) 0.3 K/uL (0.1-1.30); MONOCYTES % (AUTO) 8.9 % (2.0-12.0); NEUTROPHILS # (AUTO) 2.1 K/uL (1.8-8.9); NEUTROPHILS % (AUTO) 54.7 % (43.0-81.0); PLATELET COUNT (AUTO) 132 K/uL (150-450); RED BLOOD CELL COUNT(AUTO) 3.74 MIL/uL (4.5-6.0); RED CELL DISTRIBUTION WIDTH 13.5 % (11.5-15.0); WHITE BLOOD COUNT (AUTO) 3.9 K/uL (4.3-11.0)
[2023-01-08 07:07] LABS: CALCIUM, SERUM 8.8 mg/dL (8.5-10.1); CARBON DIOXIDE 25 mmol/L (21-32); CHLORIDE 109 mmol/L (98-107); CREATININE 1.5 mg/dL (0.6-1.3); GLUCOSE 110 mg/dL (74-106); POTASSIUM 4.2 mmol/L (3.5-5.1); SODIUM SERUM 142 mmol/L (136-145); UREA NITROGEN, BLOOD 15 mg/dL (7-18)
[2023-01-08 08:00] VITALS: BP 160/73; TEMP 98.6; O2SAT 96
[2023-01-08] MEDS: IV NS 0.9% 1,000 ML IV PRN (08:55)
[2023-01-08 09:00] VITALS: BP 160/73
[2023-01-08] MEDS: LOSARTAN POTASSIUM 50 MG TABLET PO SCH ×2 (09:00→09:06)
[2023-01-08] MEDS: MULTIVITAMIN/LUTEIN/MINERALS 1 TAB PO SCH ×2 (09:06→09:13)
[2023-01-08] MEDS: PANTOPRAZOLE 40 MG TABLET.DR PO SCH ×2 (09:07→09:13)
[2023-01-08] MEDS ORDERED: Thiamine HCL PO (09:49)
[2023-01-08] MEDS ORDERED: AMOX-430 PO (09:49)
[2023-01-08] MEDS ORDERED: PANT40TA49 PO (09:49)
[2023-01-08] MEDS ORDERED: ACET325T53 PO (09:49)
[2023-01-08] MEDS ORDERED: PANT40TA2 PO (10:34)
[2023-01-08] MEDS ORDERED: PIPERACILLIN /TAZOBACTAM 3.375 G in IV D5W 100 ML IV SCH (13:00)
[2023-01-08 13:57] LABS: APPEARANCE,URINE CLEAR (CLEAR); BILIRUBIN,URINE NEGATIVE (NEGATIVE); BLOOD, URINE NEGATIVE Ery/uL (NEGATIVE); COLOR,URINE YELLOW (YELLOW); KETONES,URINE NEGATIVE (NEGATIVE); LEUKOCYTE ESTERASE ,URINE NEGATIVE (NEGATIVE); NITRITE, URINE NEGATIVE (NEGATIVE); PH,URINE 5.5 (5.0-8.0); PROTEIN,URINE NEGATIVE (NEGATIVE); UGLUCOSE NEGATIVE (NEGATIVE); UROBILINOGEN,URINE 0.2 EU/dL (0.2)
[2023-01-08 15:28] LABS: EOSINOPHIL,URINE None Seen
[2023-01-08] MEDS ORDERED: THIAMINE HCL 100 MG TABLET PO SCH (19:00)
== END 2023-01-08 16:00 | disposition home or self-care (01) | DRG 391 ==
LOC: ER 16:30 → MED 19:05
PROVIDERS: ADMIT Nurse Practitioner Acute Care; ATTEND Nurse Practitioner Acute Care
DX: K21.9 Gastro-esophageal reflux disease without esophagitis (principal); J15.9 Unspecified bacterial pneumonia; E78.5 Hyperlipidemia, unspecified; F41.9 Anxiety disorder, unspecified; I10 Essential (primary) hypertension; D72.819 Decreased white blood cell count, unspecified; E11.9 Type 2 diabetes mellitus without complications; N40.0 Benign prostatic hyperplasia without lower urinary tract symptoms; Z20.822 Contact with and (suspected) exposure to COVID-19; Z79.899 Other long term (current) drug therapy; F10.20 Alcohol dependence, uncomplicated; G89.29 Other chronic pain; Z86.19 Personal history of other infectious and parasitic diseases; Y90.9 Presence of alcohol in blood, level not specified
CPT/HCPCS: 36415; 71045-TC; 80048-TC; 80053-TC; 80076-TC; 82272-TC; 83690-TC; 83735-TC; 84100-TC; 84484-TC; 85025-TC; 87086-TC; A4223; C9113; G0378; J2060; J2405; J2543; J3370; J3411; J3490; J7030; J7040; J7060

== ENCOUNTER 2023-05-16 04:21 | Emergency (ER) | payer MEDICARE, OTHER ==
[~2023-05-16] VITALS: Ht 170.2 cm; Wt 80.3 kg
[~2023-05-16 04:21] MED LIST changes: +ACET325T53 PO; -ALPR0.25 PO; -AZIT500T2 PO; -BENZ-13 PO; -FAMO-131 PO; +LOSA100T31 PO; -Losartan Potassium PO; -MAG355OR18 PO; -ONDA4TAB11 PO; +PANT40TA2 PO; +PANT40TA49 PO; -POLY17PO4 PO; -PRED20TA PO; +Thiamine HCL PO
[2023-05-16 04:36] VITALS: TEMP 97.7
[2023-05-16] MEDS ORDERED: LORAZEPAM 1 MG TABLET ONE (04:45)
[2023-05-16] MEDS ORDERED: LORAZEPAM 1 MG TABLET PO ONE (05:00)
[2023-05-16] MEDS ORDERED: LORA-259 PO (05:53)
[2023-05-16 06:54] VITALS: BP 142/78; O2SAT 99
== END 2023-05-16 06:54 | disposition home or self-care (01) ==
LOC: ER 04:26
DX: J02.9 Acute pharyngitis, unspecified (principal); R05.9 Cough, unspecified; F41.9 Anxiety disorder, unspecified; I10 Essential (primary) hypertension; M19.90 Unspecified osteoarthritis, unspecified site; Z79.899 Other long term (current) drug therapy; Z20.822 Contact with and (suspected) exposure to COVID-19
CPT/HCPCS: 71045-TC

== ENCOUNTER 2023-07-21 01:24 | Emergency (ER) | payer MEDICARE, OTHER ==
[~2023-07-21] VITALS: Ht 167.6 cm; Wt 79.8 kg
[~2023-07-21 01:24] MED LIST changes: +LORA-259 PO
[2023-07-21 01:50] VITALS: TEMP 98.4
[2023-07-21 03:43] LABS: BASOPHILS # (AUTO) 0.1 K/uL (0.0-0.2); BASOPHILS % (AUTO) 1.7 % (0.0-2.0); EOSINOPHILS # (AUTO) 0.1 K/uL (0.0-0.7); HEMATOCRIT 36 % (39-51); HEMOGLOBIN 12.2 g/dL (13.5-17.5); LYMPHOCYTES # (AUTO) 1.3 K/uL (0.8-4.8); LYMPHOCYTES % (AUTO) 35.8 % (20.0-44.0); MEAN CORPUSCULAR HEMOGLOBIN 34 PG (26.0-33.0); MEAN CORPUSCULAR HGB CONC 34 g/dl (31.0-36.0); MEAN CORPUSCULAR VOLUME 100 fL (80-96); MONOCYTES # (AUTO) 0.3 K/uL (0.1-1.30); MONOCYTES % (AUTO) 8.2 % (2.0-12.0); NEUTROPHILS # (AUTO) 1.9 K/uL (1.8-8.9); NEUTROPHILS % (AUTO) 51.3 % (43.0-81.0); PLATELET COUNT (AUTO) 138 K/uL (150-450); RED BLOOD CELL COUNT(AUTO) 3.57 MIL/uL (4.5-6.0); RED CELL DISTRIBUTION WIDTH 13.3 % (11.5-15.0); WHITE BLOOD COUNT (AUTO) 3.7 K/uL (4.3-11.0)
[2023-07-21 04:07] LABS: THYROID STIMULATING HORMONE 2.124 uIU/mL (0.358-3.74)
[2023-07-21 04:26] LABS: ALANINE AMINOTRANSFERASE 17 U/L (12-78); ALBUMIN 3.6 g/dL (3.4-5.0); ALKALINE PHOSPHATASE 50 U/L (46-116); ASPARTATE AMINOTRANSFERASE 20 U/L (15-37); BILIRUBIN,TOTAL 1.1 mg/dL (0.2-1.0); CALCIUM, SERUM 9.2 mg/dL (8.5-10.1); CARBON DIOXIDE 25 mmol/L (21-32); CHLORIDE 107 mmol/L (98-107); CREATININE 1.2 mg/dL (0.6-1.3); GLUCOSE 119 mg/dL (74-106); POTASSIUM 4.3 mmol/L (3.5-5.1); SODIUM SERUM 142 mmol/L (136-145); UREA NITROGEN, BLOOD 27 mg/dL (7-18)
[2023-07-21 06:25] VITALS: BP 141/72; O2SAT 98
== END 2023-07-21 06:25 | disposition home or self-care (01) ==
LOC: ER 01:27
DX: F41.9 Anxiety disorder, unspecified (principal); I10 Essential (primary) hypertension; M19.90 Unspecified osteoarthritis, unspecified site; Z79.899 Other long term (current) drug therapy
CPT/HCPCS: 36415; 80053-TC; 84443-TC; 84484-TC; 85025-TC

== ENCOUNTER 2024-02-04 12:01 | Emergency (ER) | payer MEDICARE, OTHER ==
[~2024-02-04] VITALS: Ht 152.4 cm; Wt 68.0 kg
[2024-02-04] MEDS: IV NS 0.9% 500 ML BAG IV ONE (13:08)
[2024-02-04] MEDS: IV NS 0.9% 1,000 ML BAG IV ONE (14:00)
[2024-02-04] MEDS ORDERED: ONDANSETRON HCL/PF 4 MG/2 ML VIAL ONE (14:23)
[2024-02-04] MEDS: ONDANSETRON HCL/PF 4 MG/2 ML VIAL IVP ONE (14:23)
[2024-02-04 14:25] LABS: BASOPHILS % (AUTO) 0.6 % (0.0-2.0); EOSINOPHILS % (AUTO) 1.3 % (0.0-6.0); HEMATOCRIT 37 % (39-51); HEMOGLOBIN 12.4 g/dL (13.5-17.5); LYMPHOCYTES # (AUTO) 1.6 K/uL (0.8-4.8); LYMPHOCYTES % (AUTO) 43.4 % (20.0-44.0); MEAN CORPUSCULAR HEMOGLOBIN 32 PG (26.0-33.0); MEAN CORPUSCULAR HGB CONC 33 g/dl (31.0-36.0); MEAN CORPUSCULAR VOLUME 98 fL (80-96); MONOCYTES # (AUTO) 0.3 K/uL (0.1-1.30); MONOCYTES % (AUTO) 9.3 % (2.0-12.0); NEUTROPHILS # (AUTO) 1.7 K/uL (1.8-8.9); NEUTROPHILS % (AUTO) 45.4 % (43.0-81.0); PLATELET COUNT (AUTO) 189 K/uL (150-450); RED BLOOD CELL COUNT(AUTO) 3.82 MIL/uL (4.5-6.0); RED CELL DISTRIBUTION WIDTH 12.1 % (11.5-15.0); WHITE BLOOD COUNT (AUTO) 3.7 K/uL (4.3-11.0)
[2024-02-04 14:35] LABS: CALCIUM, SERUM 9.5 mg/dL (8.5-10.1); CARBON DIOXIDE 30 mmol/L (21-32); CHLORIDE 104 mmol/L (98-107); CREATININE 1.2 mg/dL (0.6-1.3); GLUCOSE 105 mg/dL (74-106); POTASSIUM 4.2 mmol/L (3.5-5.1); SODIUM SERUM 140 mmol/L (136-145); UREA NITROGEN, BLOOD 13 mg/dL (7-18)
[2024-02-04 14:39] LABS: INR 1.05 (0.91-1.10); PARTIAL THROMBOPLASTIN TIME 37.5 SEC (24.3-34.3); PROTHROMBIN TIME 11.1 SECS (9.2-11.1)
[2024-02-04 14:41] LABS: ALANINE AMINOTRANSFERASE 19 U/L (12-78); ALBUMIN 3.6 g/dL (3.4-5.0); ALKALINE PHOSPHATASE 73 U/L (46-116); ASPARTATE AMINOTRANSFERASE 15 U/L (15-37); BILIRUBIN,DIRECT 0.3 mg/dL (0.0-0.2); BILIRUBIN,TOTAL 1.5 mg/dL (0.2-1.0); LIPASE 34 U/L (16-77); TOTAL PROTEIN, SERUM 7.7 g/dL (6.4-8.2)
[2024-02-04] MEDS ORDERED: POLY119P PO (15:49)
[2024-02-04 16:26] LABS: APPEARANCE,URINE CLEAR (CLEAR); BILIRUBIN,URINE NEGATIVE (NEGATIVE); BLOOD, URINE NEGATIVE Ery/uL (NEGATIVE); COLOR,URINE YELLOW (YELLOW); KETONES,URINE TRACE mg/dL (NEGATIVE); LEUKOCYTE ESTERASE ,URINE NEGATIVE (NEGATIVE); NITRITE, URINE NEGATIVE (NEGATIVE); PROTEIN,URINE NEGATIVE (NEGATIVE); UGLUCOSE NEGATIVE (NEGATIVE); UROBILINOGEN,URINE 0.2 EU/dL (0.2)
[2024-02-04 16:30] VITALS: BP 150/90; TEMP 98.1; O2SAT 99
[2024-02-04 16:31] LABS: RBC,URINE 0-2 /HPF (0-2)
[2024-02-04 16:32] LABS: ADD URINE CULTURE NO; BACTERIA,URINE Rare /HPF (None Seen); MUCUS,URINE Few /LPF (None Seen); SQUAMOUS EPITHELIAL CELL,UR None Seen /HPF (None Seen)
== END 2024-02-04 16:30 | disposition home or self-care (01) ==
LOC: ER 12:01
DX: R10.9 Unspecified abdominal pain (principal); K59.00 Constipation, unspecified; I10 Essential (primary) hypertension; E11.9 Type 2 diabetes mellitus without complications; F41.9 Anxiety disorder, unspecified; M19.90 Unspecified osteoarthritis, unspecified site; F17.200 Nicotine dependence, unspecified, uncomplicated; Z86.79 Personal history of other diseases of the circulatory system
CPT/HCPCS: 99285; 74176; 96374; 71045; 96361; 93005; 85025; 80048; 87086; 83690; 80076; 81001; 36415; 85730; J2405; J7030